=== PATIENT | male | born 1980 | race African-American/Black ===

== ENCOUNTER 2016-12-28 22:45 | Emergency (ER) | payer SELFPAY ==
[~2016-12-28] VITALS: Ht 160 cm; Wt 68.0 kg
--- NOTE | 2016-12-28 23:03 | NUR ---
CALLED PT X3. NO RESPONSE IN WR.
[2016-12-28 23:10] VITALS: BP 116/70
== END 2016-12-28 23:47 | disposition home or self-care (01) ==
LOC: ER 22:47
DX: S81.852A Open bite, left lower leg, initial encounter (principal); Z23 Encounter for immunization; W54.0XXA Bitten by dog, initial encounter; Y92.89 Other specified places as the place of occurrence of the external cause; Y93.89 Activity, other specified; Y99.8 Other external cause status
CPT/HCPCS: 90471; 90715; 99283; A4606; Z7610